=== PATIENT | male | born 1980 | race Caucasian/White ===

== ENCOUNTER 2021-10-21 09:24 | Outpatient (CLI) | payer BC, SELFPAY ==
--- NOTE | ~2021-10-21 | NM_ITS ---
EXAM: NM gastric emptying study DATE: 10/21/2021 14:05 INDICATION: Gastroparesis TECHNIQUE: A gastric emptying study was performed using the methodology of Mari SADLER, et al. J Nucl Med 2007; 48:568-572. The patient was given a meal consisting of 2 scrambled eggs labeled with 1 mCi Tc-99m sulfur colloid, 2 slices of toast, two packages of jam, and approximately 120 mL of water. Si multaneous anterior and posterior 1-min images of the abdomen were obtained with the patient supine a t multiple time points over a total period of 4 hours. The geometric mean of anterior and posterior v iews was determined, and the percentage retention was calculated for each time point. COMPARISON: None. FINDINGS: Gastric retention of the radiotracer-labeled meal was 33%, 14%, and 6% at the 1-hour, 2-hour, and 4-h our time points, respectively. With this technique, apparent rapid gastric emptying is suggested by < 30% gastric retention at 1 hour. Delayed gastric emptying is defined by gastric retention of >90% at 1 hour, >60% retention at 2 hours, or >10% retention at 4 hours. IMPRESSION: 1. Normal gastric emptying. Reviewed, dictated and finalized at location A. IMPRESSION: 1. Normal gastric emptying.
== END 2021-10-21 09:25 | disposition home or self-care (01) ==
LOC: ANHIMG 09:27
PROVIDERS: Visit Provider Family Medicine
DX: K31.84 Gastroparesis (principal); I10 Essential (primary) hypertension
CPT/HCPCS: 78264; A9541

== ENCOUNTER 2021-10-28 08:22 | Outpatient (CLI) | payer BC, SELFPAY ==
--- NOTE | ~2021-10-28 | US_ITS ---
EXAMINATION: US retroperitoneal duplex ltd DATE: 10/28/2021 09:07 INDICATION: hypertension TECHNIQUE: Multiple grayscale, color Doppler, and pulsed Doppler images of the kidneys and renal paul marguerite were obtained. COMPARISON: None. FINDINGS: The aorta peak systolic velocity is 75 cm/s. The right renal artery peak systolic velocity is 109 cm/ s in the proximal segment, 113 cm/s in the mid segment, and 99 cm/s in the distal segment. The left r enal artery peak systolic velocity is 75 cm/s in the proximal segment, 78 cm/s in the mid segment, an d 64 cm/s in the distal segment. IMPRESSION: 1. No Doppler evidence of renal artery stenosis. Reviewed, dictated and finalized at location B.
== END 2021-10-28 08:23 | disposition home or self-care (01) ==
PROVIDERS: PCP Family Medicine; Visit Provider Family Medicine
DX: I10 Essential (primary) hypertension (principal)
CPT/HCPCS: 93976

== ENCOUNTER 2022-04-15 11:00 | Outpatient (RCR) | payer BC, SELFPAY ==
[2022-01-28 13:35] VITALS: BP_SYST 110
--- NOTE | 2022-01-28 14:49 | OTOPEVAL1 ---
Assessment and note entered by SIMONE Lo/Divina Evaluation Information Assessment Status Evaluation Diagnosis CVA July 2018 Subjective Information Patient reports L UE has very little strength, difficulty with letting go of items, use of L UE during daily and functional tasks. Patient reports L UE elbow to hand is painful. Patient reports wants to increase strength and function of L UE. Reported Pain Level Pain Score 4: Self Report Assessment OT Clinical Summary Addy is a 41 year old male presenting to Outpatient OT with a history of CVA from 2019 with residual L sided weakness. Patient demonstrates deficits with L UE strength and active ROM resulting in difficulties with functional and daily tasks. Patient would benefit from skilled OT for use of modalities, neuro re-education, UE strengthening, instruction on home programs in order to increase participation and functional use of L UE. Plan of Care Interventions Therapeutic Exercise,Manual Therapy,Neuro Re- education,Therapeutic Activities,Electrical Stimulation,Self-Care/Home Management,Other OT Services Indicated Yes These treatments will address the objective and functional deficits as defined above. The patient will be advanced safely and appropriately in order for the patient to progress towards his/her prior level of function. Additional exercises will be introduced and as well as a comprehensive home exercise program upon discharge, if needed, ?to ensure carryover of functional gains achieved in the clinic. This treatment plan has been reviewed and agreement upon by the patient.
--- NOTE | 2022-02-04 14:51 | PTOPEVAL1 ---
Assessment and note entered by Gardenia Walker, PT, DPT Evaluation Information Assessment Status Evaluation Diagnosis CVA Onset 3 years ago Subjective Information Pt states he had a stroke 3 years ago. He has completed 3 months of inpatient therapy and 3 months of outpatient therapy and then the pandemic started. Pt states he has difficultly turning his body to the left, like getting in/out of the car. He states he has L leg weakness that makes it hard for him to walk. He states he would like to normalize his gait and to improve his leg strength . He reports mikel hip pain. He states he can stand for 20 mins before he has to go sit down. He has a history of seizues. Reported Pain Level Pain Score 2: Self Report Pain Score 0: Self Report Assessment PT Clinical Summary Addy presents to therapy today for his initial evaluation with a diagnosis of a CVA in July of 2018. Today he demonstrates significant weakness of his LLE with trace muscle activation of his ankle and knee. He demonstrates severe gait deviations d/t this as well as decreased balance, and decreased functional mobility. He demonstrates a decreased gait speed and unequal weight distribution during functional mobility. Skilled physical therapy services are indicated to treat the deficits noted, to improve function, to improve safety, and to limit impairment. Plan of Care Interventions Electrical Stimulation,Gait Training,Manual Therapy,Neuro Re-education,Patient/Caregiver Educati,Therapeutic Activities,Therapeutic Exercise PT Services Indicated Yes Treatment Frequency and 2x/wk for 4 wks Duration These treatments will address the objective and functional deficits as defined above. The patient will be advanced safely and appropriately in order for the patient to progress towards his/her prior level of function. Additional exercises will be introduced and as well as a comprehensive home exercise program upon discharge, if needed, ?to ensure carryover of functional gains achieved in the clinic. This treatment plan has been reviewed and agreement upon by the patient.
[2022-02-25 12:30] VITALS: BP_SYST 115
--- NOTE | 2022-02-25 14:31 | OTOPREEVAL ---
Assessment and note entered by SIMONE Lo/Divina Evaluation Information Assessment Status Re-evaluation Diagnosis CVA July 2018 Subjective Information Patient presents for re-evaluation after 4 weeks of OT. Patient reports hand and wrist are looser in addition to shoulder feeling less pain which has helped with sleeping better. Patient reports the L hand feels easier to campus coordinator objects but is still difficult to release objects. Reported Pain Level Pain Score 1: Self Report Pain Score 1: Self Report Assessment OT Clinical Summary Addy presents to Outpatient OT with diagnosis of CVA with L side weakness. Patient has attended therapy for 4 weeks. Addy has exhibited progress with active ROM and strength of shoulder. Patient has increased campus coordinator and lateral pinch strength. Patient reports decreased pain in L shoulder. Patient would benefit from continued skilled OT for HEP instruction/progression, UE ROM/ strengthening exercises, modalities, manual therapy in order to optimize functional use of L UE. Plan of Care Interventions Therapeutic Exercise,Manual Therapy,Neuro Re- education,Therapeutic Activities,Hot Pack/Cold Pack,Electrical Stimulation,Self-Care/Home Management,Other OT Services Indicated Yes These treatments will address the objective and functional deficits as defined above. The patient will be advanced safely and appropriately in order for the patient to progress towards his/her prior level of function. Additional exercises will be introduced and as well as a comprehensive home exercise program upon discharge, if needed, ?to ensure carryover of functional gains achieved in the clinic. This treatment plan has been reviewed and agreement upon by the patient.
--- NOTE | 2022-03-18 16:48 | PTOPPROG ---
Assessment and note entered by Gardenia Walker, PT, DPT Evaluation Information Assessment Status Progress Diagnosis CVA Onset 3 years ago Subjective Information Pt states he has noticed his balance has improved since starting therapy. He states outside of that things seem about the same. Assessment PT Clinical Summary Addy presents to therapy today for his progress report following 5 visits of skilled therapy. Today he demonstrates improved knee strength, he still has decreased control over his hip motions, and decreased responsiveness in his L ankle. He has improved his gait speed during the 2 min walk test. He continues to ambulate with significant gait deviations as he demonstrates decreased hip and knee flexion on the L with increased hip circumduction. Continuation of skilled physical therapy services are indicated to address gait deviation, to aid in decreasing tone, to improve strength and ROM, to manage pain, and to progress towards a return in baseline function. Plan of Care Interventions Electrical Stimulation,Gait Training,Manual Therapy,Neuro Re-education,Patient/Caregiver Educati,Therapeutic Activities,Therapeutic Exercise PT Services Indicated Yes Treatment Frequency and 2x/wk for 6 wks Duration These treatments will address the objective and functional deficits as defined above. The patient will be advanced safely and appropriately in order for the patient to progress towards his/her prior level of function. Additional exercises will be introduced and as well as a comprehensive home exercise program upon discharge, if needed, ?to ensure carryover of functional gains achieved in the clinic. This treatment plan has been reviewed and agreement upon by the patient.
[2022-04-01 10:00] VITALS: BP_SYST 117
--- NOTE | 2022-04-01 10:55 | OTOPPROG ---
Assessment and note entered by SIMONE Lo/Divina Evaluation Information Assessment Status Progress Diagnosis CVA July 2018 Subjective Information Patient presents for re-evaluation for OT. Patient reports continues to have less pain in shoulder and L UE is looser. Patient reports it is easier to grasp objects but still wants to work on releasing objects better. Assessment OT Clinical Summary Addy presents to Outpatient OT with diagnosis of CVA with L side weakness. Patient has attended therapy for 8 weeks. Addy has exhibited continued progress with active ROM and strength of shoulder. Patient has increased facility assistant and carmona pinch strength. Patient reports wants to continue working on finger extension. Patient would benefit from continued skilled OT for HEP instruction/ progression, UE ROM/strengthening exercises, modalities, manual therapy in order to optimize functional use of L UE. Plan of Care Interventions Therapeutic Exercise,Manual Therapy,Neuro Re- education,Therapeutic Activities,Hot Pack/Cold Pack,Electrical Stimulation,Self-Care/Home Management,Other OT Services Indicated Yes These treatments will address the objective and functional deficits as defined above. The patient will be advanced safely and appropriately in order for the patient to progress towards his/her prior level of function. Additional exercises will be introduced and as well as a comprehensive home exercise program upon discharge, if needed, ?to ensure carryover of functional gains achieved in the clinic. This treatment plan has been reviewed and agreement upon by the patient.
--- NOTE | 2022-04-03 13:10 | PCPTNOTE ---
Patient called & cancelled scheduled appointment this date due to having a bad headache.
--- NOTE | 2022-04-22 09:14 | PCPTNOTE ---
This treatment is being continued on visit number [id number]. Please see documentation on both accounts to view progress. Completed interventions, outcomes, and problems have been marked as Inactive to facilitate the copying of the Care plan routine for recurring accounts.
--- NOTE | 2022-04-22 09:58 | PCOTNOTE ---
This treatment is being continued on visit number [id number]. Please see documentation on both accounts to view progress. Completed interventions, outcomes, and problems have been marked as Inactive to facilitate the copying of the Care plan routine for recurring accounts.
== END 2022-04-16 14:31 | disposition home or self-care (01) ==
LOC: ANHGOSHPT 11:00
PROVIDERS: PCP Family Medicine
DX: G57.01 Lesion of sciatic nerve, right lower limb (principal); I63.9 Cerebral infarction, unspecified; G81.14 Spastic hemiplegia affecting left nondominant side
CPT/HCPCS: 97014; 97110; 97112; 97116; 97140; 97162; 97165; 97168; 97530; G0283

== ENCOUNTER 2022-07-08 11:00 | Outpatient (RCR) | payer BC, SELFPAY ==
--- NOTE | 2022-04-22 09:14 | PCPTNOTE ---
The treatment documented on this account is a continuation of the treatment documented on visit number [id number]. Please see documentation on both accounts to view progress. The Plan of Care has been transitioned and updated within the new V#. I have addressed and agree with the discipline specific Problems, Interventions, and Goals for the current certification period. Completed interventions, outcomes, and problems have been marked as Inactive to facilitate the copying of the Care plan routine for recurring accounts.
--- NOTE | 2022-04-22 09:59 | PCOTNOTE ---
The treatment documented on this account is a continuation of the treatment documented on visit number [id number]. Please see documentation on both accounts to view progress. The Plan of Care has been transitioned and updated within the new V#. I have addressed and agree with the discipline specific Problems, Interventions, and Goals for the current certification period. Completed interventions, outcomes, and problems have been marked as Inactive to facilitate the copying of the Care plan routine for recurring accounts.
[2022-04-27 10:59] VITALS: BP_SYST 120
--- NOTE | 2022-04-27 12:05 | OTOPPROG ---
Assessment and note entered by Anahi Schumacher OTR/Divina Evaluation Information Assessment Status Re-evaluation Subjective Information Patient reports L UE feels looser at the elbow since previous re-evaluation. Reports it is easier to potato picker items but still difficult to release items. Assessment OT Clinical Summary Addy presents to Outpatient OT with diagnosis of CVA with L side weakness. Patient has attended therapy for 12 weeks. Addy has demonstrated progress with active ROM and strength of shoulder. Patient demonstrated increased gas welder, lateral/ carmona pinch strength, ability to grasp objects. Patient would benefit from continued skilled OT for HEP instruction/progression, UE ROM/ strengthening exercises, modalities, manual therapy in order to optimize functional use of L UE. Plan of Care Interventions Therapeutic Exercise,Manual Therapy,Neuro Re- education,Therapeutic Activities,Hot Pack/Cold Pack,Electrical Stimulation,Self-Care/Home Management OT Services Indicated Yes Treatment Frequency and 1x/week, 4 weeks Duration These treatments will address the objective and functional deficits as defined above. The patient will be advanced safely and appropriately in order for the patient to progress towards his/her prior level of function. Additional exercises will be introduced and as well as a comprehensive home exercise program upon discharge, if needed, ?to ensure carryover of functional gains achieved in the clinic. This treatment plan has been reviewed and agreement upon by the patient.
--- NOTE | 2022-05-01 16:04 | PTOPPROG ---
Assessment and note entered by Gardenia Walker, PT, DPT Evaluation Information Assessment Status Progress Diagnosis CVA Onset 2019 Subjective Information Pt states his hip feels a little tight today after walking and standing at a conference this weekend and then was in the car for 24 hours. He states he feels like his walking is improving a little he states it just feels a lot more concisus. Assessment PT Clinical Summary Addy presents to therapy today for his progress report following 13 visits of skilled therapy to treat the deficts of a CVA in 2019. Today Addy continues to have trace dorsiflexion strength on his L side, decreased hip and knee strength and control on the L, and decreased hip motion on the L. He reports increased hip pain since 2019 which has decreased since completing some therapy. He continues to have increased tone in his L leg making it difficult to achieve a fluid gait pattern but her reports notable improvement in his pain with ambulation. Continuation of skilled physical therapy services are indicated to further progress towards strength, ROM, and mobility goals, to manage pain, and to improve functional mobility. Plan of Care Interventions Gait Training,Manual Therapy,Neuro Re-education, Patient/Caregiver Educati,Therapeutic Activities, Therapeutic Exercise PT Services Indicated Yes Treatment Frequency and 2x/wk for 4 wks Duration These treatments will address the objective and functional deficits as defined above. The patient will be advanced safely and appropriately in order for the patient to progress towards his/her prior level of function. Additional exercises will be introduced and as well as a comprehensive home exercise program upon discharge, if needed, ?to ensure carryover of functional gains achieved in the clinic. This treatment plan has been reviewed and agreement upon by the patient.
--- NOTE | 2022-05-13 09:29 | PCPTNOTE ---
Patient reports he had a meeting he had to attend all day and could not make appointment.
--- NOTE | 2022-05-21 13:00 | PCPTNOTE ---
Patient called & cancelled scheduled appointment this date due to not being able to make it in.
--- NOTE | 2022-05-27 07:20 | PCOTNOTE ---
Patient called & cancelled scheduled appointment on 05/13/2022 and 05/20/2022 due to work meetings and a class patient had to attend, patient is scheduled for a re-evaluation on this date 05/27/2022.
[2022-05-27 10:04] VITALS: BP_SYST 124
--- NOTE | 2022-05-27 11:17 | OTOPPROG ---
Assessment and note entered by SIMONE Lo/Divina Evaluation Information Assessment Status Progress Subjective Information Patient reports L UE elbow is moving better and is able to perform more shoulder horizontal abduction. Patient reports has still completed HEP consistently since last re-evaluation. Missed several treatments due to work meetings and a mandatory class. Patient reports functionally at home is able to use L hand for picking up objects and holding onto items easier. Assessment OT Clinical Summary Addy presents to Outpatient OT with diagnosis of CVA with L side weakness. Patient has attended therapy for 16 weeks although since previous re- evaluation on 04/27/2022 has only been able to attend treatment x1 due to work and a class conflict. Patient reports has completed HEP at home. Addy has demonstrated progress with active ROM and strength of shoulder. 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 Patient would benefit from continued skilled OT for HEP progression, UE ROM/strengthening exercises, modalities, manual therapy in order to optimize functional use of L UE. Plan of Care Interventions Therapeutic Exercise,Manual Therapy,Neuro Re- education,Therapeutic Activities,Hot Pack/Cold Pack,Electrical Stimulation,Self-Care/Home Management OT Services Indicated Yes Treatment Frequency and 1x/week, 4 weeks Duration These treatments will address the objective and functional deficits as defined above. The patient will be advanced safely and appropriately in order for the patient to progress towards his/her prior level of function. Additional exercises will be introduced and as well as a comprehensive home exercise program upon discharge, if needed, ?to ensure carryover of functional gains achieved in the clinic. This treatment plan has been reviewed and agreement upon by the patient.
--- NOTE | 2022-06-11 15:35 | PTOPPROG ---
Assessment and note entered by Gardenia Walker, PT, DPT Evaluation Information Assessment Status Progress Diagnosis CVA Onset 2019 Subjective Information Pt states his hip has been bothering him a lot recently. Pt states he feels like his L ankle is still really weak making it hard for him to work as he has to walk on rocks and mud. He states he feels like his sit to stands have improved. Assessment PT Clinical Summary Addy presents to therapy today for his progress report following 21 visits of skilled therapy to treat his residual symptoms from a CVA in 2019. Today he continues to demonstrate trace ankle strength without any improvement, he does demonstrate minor improvements in knee and hip strength as well as control with active motions. He demonstrates improved body awareness of deficits with functional mobility. Continuation of skilled physical therapy services are indicated to address deficits noted above and to improve functional mobility. Plan of Care Interventions Gait Training,Manual Therapy,Neuro Re-education, Patient/Caregiver Educati,Therapeutic Activities, Therapeutic Exercise PT Services Indicated Yes Treatment Frequency and 1x/wk for 4 wks Duration These treatments will address the objective and functional deficits as defined above. The patient will be advanced safely and appropriately in order for the patient to progress towards his/her prior level of function. Additional exercises will be introduced and as well as a comprehensive home exercise program upon discharge, if needed, ?to ensure carryover of functional gains achieved in the clinic. This treatment plan has been reviewed and agreement upon by the patient.
[2022-07-08 09:58] VITALS: BP_SYST 105
--- NOTE | 2022-07-08 12:49 | OTOPDC ---
Assessment and note entered by Anahi Schumacher OTR/Divina Evaluation Information Assessment Status Discharge Diagnosis CVA Subjective Information Patient Presents for Re-evaluation after 4 treatments with OT. Since previous re-eval patient reports L hand feels looser, is able to move L shoulder better. Patient reports has still completed HEP consistently including WB through L UE, stretching shoulder, stretching hand and using theraputty for gross gripping. Functionally patient reports is able to apply deodorant under L arm easier due to increased strength of L UE. Reported Pain Level Pain Score 3: Self Report Pain Score 2: Self Report Assessment OT Clinical Summary Addy presents to Outpatient OT with diagnosis of CVA with L side weakness. Patient has made improvements with overall function of L UE including active/passive ROM and gross strength. Patient did not make improvements from previous re -evaluation on 05/27/2022 with L UE strength, ROM or coordination. Patient is to be discharged from skilled OT at this time with independence with HEP materials. Patient is agreeable to plan at this time. Plan of Care OT Services Indicated No
--- NOTE | 2022-07-08 17:14 | PTOPDC ---
Assessment and note entered by Gardenia Walker, PT, DPT Evaluation Information Assessment Status Discharge Diagnosis CVA Onset 2018 Subjective Information Pt states he went to a football game on Wednesday and after the game he states his hip really hurt with all the walking, standing, and stairs, he states his pain was a 10/10. Reported Pain Level Pain Score 3: Self Report Pain Score 2: Self Report Assessment PT Clinical Summary Addy presents to therapy today for his progress report following 24 visits of skilled therapy to treat the residual deficits from a CVA in 2019. Today he demonstrates continued decreased in LLE strength compared to his RLE. Since starting therapy his gait speed and gait deviations have both fluctuated. When he decreases his speed he can minimize the substitutions, but as speed increases so do the substitutions. It was recommended that he continue with his LE HEP on his own to improve LE strength. He will be discharged at this time d/t poor therapy progress. Plan of Care Interventions Gait Training,Manual Therapy,Neuro Re-education, Patient/Caregiver Educati,Therapeutic Activities, Therapeutic Exercise PT Services Indicated No Treatment Frequency and to be discharged Duration
== END 2022-07-09 10:43 | disposition home or self-care (01) ==
LOC: ANHGOSHPT 11:00
PROVIDERS: PCP Family Medicine
DX: G57.01 Lesion of sciatic nerve, right lower limb (principal); I63.9 Cerebral infarction, unspecified; G81.14 Spastic hemiplegia affecting left nondominant side
CPT/HCPCS: 97014; 97110; 97112; 97116; 97140; 97530; 99199; G0283

== ENCOUNTER 2022-07-24 20:00 | Emergency (ER) | payer BC, SELFPAY ==
--- NOTE | 2022-07-24 20:01 | ED.URI ---
HPI - URI/Sore Throat General Chief Complaint: Upper Respiratory Infection Stated Complaint: COUGH Time Seen by Provider: 07/24/22 20:01 Source: patient Mode of arrival: ambulatory Limitations: no limitations History of Present Illness HPI Narrative: History of stroke, diabetes, high blood pressure presents with complaint of cough for 2-3 days. Reports he is having coughing fits, [id number] medications are not helping. Is not getting any sleep at night. Denies chest pain and shortness of breath. Afebrile. No concern for COVID today. Patient here with his father. Patient has residual weakness from stroke 3 years ago. Ambulatory with steady gait. Patient is friendly, speaking in full sentences. All systems reviewed and negative except as noted above. Related Data Home Medications Medication Instructions Recorded Confirmed amlodipine 5 mg tablet 5 mg PO DAILY 07/24/22 07/24/22 atorvastatin 40 mg tablet 40 mg PO DAILY 07/24/22 07/24/22 baclofen 10 mg tablet 10 mg PO DAILY 07/24/22 07/24/22 duloxetine 60 mg capsule,delayed 60 mg PO DAILY 07/24/22 07/24/22 release gabapentin 300 mg capsule 300 mg PO DAILY 07/24/22 07/24/22 glipizide 10 mg tablet, extended 10 mg PO DAILY 07/24/22 07/24/22 release 24 hr lisinopril 40 mg tablet 40 mg PO DAILY 07/24/22 07/24/22 metformin 500 mg tablet,extended 500 mg PO DAILY 07/24/22 07/24/22 release 24 hr pioglitazone 45 mg tablet 45 mg PO DAILY 07/24/22 07/24/22 Allergies Allergy/AdvReac Type Severity Reaction Status Date / Time No Known Allergies Allergy Verified 07/24/22 20:04 Review of Systems Review of Systems: CONSTITUTIONAL: Denies fever, chills, or sweats. EYES: Denies visual changes, redness, or discharge. ENT: Reports rhinorrhea, congestion, postnasal drainage. Denies sore throat, or otalgia. CARDIOVASCULAR: Denies chest pain, palpitations, or edema. RESPIRATORY: Reports cough. Denies dyspnea. GASTROINTESTINAL: Denies abdominal pain, nausea, vomiting, or diarrhea. GENITOURINARY: Denies dysuria or hematuria. SKIN: Denies rash or itching. MUSCULOSKELETAL: Denies back pain, joint pain, or myalgia. NEUROLOGIC: Denies headache, numbness, or weakness. PSYCHIATRIC: Denies anxiety or depression. All other systems reviewed are negative, except as documented in HPI. PMFSH Comments At time of signature, agree with nursing past medical, surgical, social and family history. There is no relevant family history pertinent to the presenting complaint. Exam Narrative: GENERAL: This is a well-nourished, well-developed patient, in no apparent distress. HEAD: normocephalic, atraumatic. EYES: PERRL. Sclera clear/white. Vision is grossly intact. EARS: External ears normal, auditory canals clear and without drainage, TMs normal without perforation. Hearing grossly intact. NOSE: External nose normal with clear nasal drainage. Nares without erythema. THROAT: Mucous membranes moist, no erythema to posterior pharynx. Clear postnasal drainage. NECK: Neck supple, non-tender without lymphadenopathy, masses or thyromegaly. CARDIOVASCULAR: Regular rate and rhythm without murmurs, gallops, or rubs. RESPIRATORY: Clear to auscultation. Breath sounds equal bilaterally. No wheezes, rales, or rhonchi. SKIN: warm, Dry, intact with no suspicious lesions or rash, good texture and turgor. NEURO: awake, alert, and oriented to person, place and time. There were no obvious focal neurologic abnormalities. EXTREMITIES: No joint tenderness, effusion, or edema noted. Course Course Level of Care: Express Care Visit Vital Signs Vital signs: Vital Signs Temperature 36.6 C 07/24/22 20:08 Pulse Rate 102 H 07/24/22 20:08 Respiratory Rate 16 07/24/22 20:08 Blood Pressure 142/95 H 07/24/22 20:08 Pulse Oximetry 99 07/24/22 20:08 Temperature 36.6 C 07/24/22 20:08 Pulse Rate 102 H 07/24/22 20:08 Respiratory Rate 16 07/24/22 20:08 Blood Pressure 142/95 H 07/24/22 20:08 P
[2022-07-24 20:08] VITALS: BP 142/95; PULSE 102; RESP 16; TEMP 36.6; O2SAT 99
== END 2022-07-24 20:19 | disposition home or self-care (01) ==
PROVIDERS: Emergency Provider Nurse Practitioner Family; PCP Family Medicine
DX: J06.9 Acute upper respiratory infection, unspecified (principal); Z79.84 Long term (current) use of oral hypoglycemic drugs
CPT/HCPCS: 99213; G0463

== ENCOUNTER 2024-05-01 07:48 | Outpatient (RCR) | payer BC, SELFPAY ==
--- NOTE | 2024-05-01 11:12 | PTOPEVAL1 ---
Assessment and note entered by Rodriguez Cruz Evaluation Information Assessment Status Evaluation ICD-10 Condition Codes (PT) Difficulty Walking R26.2,Abnormalities of gait and mobility R26.9,Weakness R53.1 Other ICD-10 Condition Codes ( I69.354, Z86.79, Z98.890 PT) Onset 08/04/2018 Subjective Information Pt reports he had a CVA in July 2018 and went to impatient rehab at [facility]. While in rehab he reports having an aneurysm and then went to a different rehab facility in [place]. After returning home in October 2018 he was attending outpatient PT until [place]. 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 He occasionally uses a cane when it's icy outside or if he's out on the job site, states he doesn't typically use the cane if he's on level ground. States he lives by himself in a two story home with 4 steps to enter, reports he doesn't access the second floor. States his goal is to get rid of some pain in his left hip and walk straighter. He reports he often feels like his hip is going to pop out. Reports 3 falls in the last year. Reported Pain Level Pain Score 6: Self Report Assessment PT Clinical Summary Mr. Ibanez is a 44 year old male who presents to physical therapy with complaints of left sided weakness and hip pain following a CVA in 2018. He presents with moderate left hip pain, generalized weakness of the left lower extremity with flexor synergy noted with active movements, impaired left ankle ROM, and functional decline. He is at an increased risk for falls per Tinetti and demonstrates impaired functional walking capacity per 6MWT. Skilled PT services are indicated to improve lower extremity strength and joint mobility, reduce pain, and improve overall functional mobility and endurance for the patient to be able to perform functional tasks and work activities with reduced pain. Plan of Care Interventions Check Out for Orthotic/Prosthetic,Electrical Stimulation,Gait Training,Hot Pack/Cold Pack, Manual Therapy,Neuro Re-education,Patient/ Caregiver Education,Therapeutic Activities, Therapeutic Exercise,Self-Care/Home Management PT Services Indicated Yes Treatment Frequency and 2x/week for 12 visits Duration These treatments will address the objective and functional deficits as defined above. The patient will be advanced safely and appropriately in order for the patient to progress towards his/her prior level of function. Additional exercises will be introduced and as well as a comprehensive home exercise program upon discharge, if needed, ?to ensure carryover of functional gains achieved in the clinic. This treatment plan has been reviewed and agreement upon by the patient.
--- NOTE | 2024-05-01 11:14 | PCPTNOTE ---
I reviewed the License Pending Therapist's documentation and agree with the findings.
--- NOTE | 2024-05-22 16:30 | PCPTNOTE ---
I reviewed the License Pending Therapist's documentation and agree with the findings.
--- NOTE | 2024-05-31 09:01 | OPREHPOC ---
Outpatient Therapy Plan of Care This is a Multidisciplinary Plan of Care that may contain components documented by all disciplines (PT, OT, and ST.) PT Problem 1 PT Problem #1 Knowledge Deficit PT Goal 1 Goal / Goal Update Independent with HEP Target Visit 2 Progress Met PT Problem 2 PT Problem #2 Impaired Range of Motion PT Goal 1 Goal / Goal Update 1. Improve ankle dorsiflexion PROM to 10 degrees for improved ankle flexibility for functional tasks Target Visit 12 PT Problem 3 PT Problem #3 Pain PT Goal 1 Goal / Goal Update 1. Reduce pain at rest to 3/10. met 2. Pt to report withstanding work activities with no more than 5/10 pain in the L hip. met Target Visit 12 Progress Met PT Problem 4 PT Problem #4 Impaired Functional Mobility PT Goal 1 Goal / Goal Update 1. Pt improve 5xSTS score to 12 seconds for improved ability to get out of a chair. not met 2. Improve 6MWT to 700ft for improved functional endurance and standing tolerance for work activities. Target Visit 12 PT Problem 5 PT Problem #5 Impaired Strength PT Goal 1 Goal / Goal Update 1. Improve gross hip strength to 3+/5 2. Improve knee extension strength to 3+/5 Target Visit 12
--- NOTE | 2024-05-31 09:01 | PTOPPROGNS ---
Assessment and note entered by JT File, PT Evaluation Information Assessment Status Evaluation ICD-10 Condition Codes (PT) Difficulty Walking R26.2,Abnormalities of gait and mobility R26.9,Weakness R53.1 Other ICD-10 Condition Codes ( I69.354, Z86.79, Z98.890 PT) Onset 08/04/2018 Subjective Information patient reports he feels pretty good. he reports he is a bit tired today. he reports since starting therapy, he feels his hips are looser and his balance is better. he also feels he has some more flex/mobility in the L ankle. he reports he has had no falls. Assessment PT Clinical Summary mr. valadez presents to skilled PT services for his 10th skilled therapy visit. he displays improved gait efficiency on 6 minute walk test, but continued circumduction of the L LE during gait cycle. he notes much decreased and well managed pain reports now. patient would benefit from continued skilled PT to address his remaining objective/functional deficits and improve his functional activity performance/quality of life. Plan of Care Interventions Check Out for Orthotic/Prosthetic,Electrical Stimulation,Gait Training,Hot Pack/Cold Pack, Manual Therapy,Neuro Re-education,Patient/ Caregiver Education,Therapeutic Activities, Therapeutic Exercise,Self-Care/Home Management PT Services Indicated Yes Treatment Frequency and continue skilled PT per initial POC Duration These treatments will address the objective and functional deficits as defined above. The patient will be advanced safely and appropriately in order for the patient to progress towards his/her prior level of function. Additional exercises will be introduced and as well as a comprehensive home exercise program upon discharge, if needed, ?to ensure carryover of functional gains achieved in the clinic. This treatment plan has been reviewed and agreement upon by the patient.
--- NOTE | 2024-06-29 08:11 | OPREHPOC ---
Outpatient Therapy Plan of Care This is a Multidisciplinary Plan of Care that may contain components documented by all disciplines (PT, OT, and ST.) PT Problem 1 PT Problem #1 Knowledge Deficit PT Goal 1 Goal / Goal Update Independent with HEP Target Visit 2 Progress Met PT Problem 2 PT Problem #2 Impaired Range of Motion PT Goal 1 Goal / Goal Update 1. Improve ankle dorsiflexion PROM to 10 degrees for improved ankle flexibility for functional tasks Target Visit 12 Progress Not Met PT Problem 3 PT Problem #3 Pain PT Goal 1 Goal / Goal Update 1. Reduce pain at rest to 3/10. met 2. Pt to report withstanding work activities with no more than 5/10 pain in the L hip. met Target Visit 12 Progress Met PT Problem 4 PT Problem #4 Impaired Functional Mobility PT Goal 1 Goal / Goal Update 1. Pt improve 5xSTS score to 12 seconds for improved ability to get out of a chair. not met 2. Improve 6MWT to 700ft for improved functional endurance and standing tolerance for work activities. met Target Visit 16 Progress Partially Met PT Problem 5 PT Problem #5 Impaired Strength PT Goal 1 Goal / Goal Update 1. Improve gross hip strength to 3+/5. not met 2. Improve knee extension strength to 3+/5. met Target Visit 12 Progress Partially Met
--- NOTE | 2024-06-29 08:11 | PTOPDC ---
Assessment and note entered by JT File, PT Evaluation Information Assessment Status Discharge ICD-10 Condition Codes (PT) Difficulty Walking R26.2,Abnormalities of gait and mobility R26.9,Weakness R53.1 Other ICD-10 Condition Codes ( I69.354, Z86.79, Z98.890 PT) Onset 08/04/2018 Subjective Information patient reports he has had no falls since starting therapy. he reports he feels more mobile and steady on his feet. he reports he feels his balance is better. Assessment PT Clinical Summary mr. valadez presents to skilled PT services for his 12th skilled PT visit. he displays improved LE strength, improved gait efficiency, improved balance, and no falls over the last 4 weeks in skilled PT. he has met over 62% of his goals for skilled PT, with near achievement of the remaining unmet goals. at this time, he will DC skilled PT, and continue with HEP independent at home. he was educated to follow up with PT or PCP if he experiences any regression of performance. Plan of Care PT Services Indicated Yes
== END 2024-06-16 20:00 | disposition home or self-care (01) ==
LOC: CHSPT 07:48
PROVIDERS: Visit Provider Nurse Practitioner Adult Health
DX: I69.354 Hemiplegia and hemiparesis following cerebral infarction affecting left non-dominant side (principal); Z86.79 Personal history of other diseases of the circulatory system; Z98.890 Other specified postprocedural states
CPT/HCPCS: 97110; 97161; 97530

== ENCOUNTER 2024-07-13 09:55 | Outpatient (RCR) | payer BC, SELFPAY ==
--- NOTE | 2024-07-13 13:41 | OPREHPOC ---
Outpatient Therapy Plan of Care This is a Multidisciplinary Plan of Care that may contain components documented by all disciplines (PT, OT, and ST.) PT Problem 1 PT Problem #1 Knowledge Deficit PT Goal 1 Goal / Goal Update 1. independent and compliant with HEP Target Visit 6 PT Problem 2 PT Problem #2 Pain PT Goal 1 Goal / Goal Update 1. patient to report no radicular symptoms in the L UE for the last week 2. patient to report no shooting pains down to his L LE in the last week. Target Visit 12 PT Problem 3 PT Problem #3 Impaired Range of Motion PT Goal 1 Goal / Goal Update 1. improve cervical rotation L to 75 degrees active 2. improve cervical side bending bilat to 30 degrees or better 3. improve cervical extension to 45 degrees 4. patient to display active L shoulder flexion and abduction improvements of 15 degrees or better Target Visit 12 PT Problem 4 PT Problem #4 Impaired Strength PT Goal 1 Goal / Goal Update 1. improve L hand intern brand strength by 10 lbs 2. improve L elbow flex strength to 3+/5 or better 3. improve L elbow extension strength to 3+/5 or better Target Visit 12 PT Problem 5 PT Problem #5 Impaired Functional Mobility PT Goal 1 Goal / Goal Update 1. quick dash to display less than 30% functional deficits 2. NDI to display less than 30% functional deficits 3. patient to report no L UE issues looking over the L shoulder Target Visit 12
--- NOTE | 2024-07-13 13:41 | PTOPEVAL1 ---
Assessment and note entered by JT File, PT Evaluation Information Assessment Status Evaluation Diagnosis hx of carotid artery disection, L sided hemiparesis from CVA ICD-10 Condition Codes (PT) Radiculopathy, cervical M54.13,Pain in left shoulder M25.512 Other ICD-10 Condition Codes ( G89.29; M54.12; I69.354; Z86.79 PT) Onset 07/04/24 Subjective Information patient reports he saw the neurosurgeon about 2 weeks ago. he was told to come back to therapy for issues with the shoulder and arm. he reports his L scapular was stuck the other day. he reports he was able to break it loose with towel slides on a table. he reports he has been having issues with the L shoulder for 6 years since his stroke. he reports since the stroke he has been able to shrug the shoulder and squeeze his hand, but he has no active movement out of the elbow. he reports he has pain in the neck. he reports when he turns to the L to look over his shoulder he will get pain all the way down to his L foot. he had a stroke 6 years ago on the R side of his brain resulting in hemiparesis of the L side of his body. he reports he does get occasional numbness and tingling along the whole left side of his body (arm and leg) that he has had going on since his stroke. he reports he has increased pain in the L shoulder with movement and turning the head to the L side. Reported Pain Level Pain Score 3: Self Report Assessment PT Clinical Summary mr. perdomo is a 44 yo man who presents to skilled PT services for evaluation of L UE weakness and cervical radiculopathy. he has a history of L hemiparesis from a CVA about 6 years ago. he presents today with deficits in active/ passive L UE rom, poor posture, L shoulder instability, and decreased functional activity performance/quality of life. he would benefit from continued skilled PT to address these objective/ functional deficits to improve his functional activity performance and quality of life. he does not show any positive tests for cervical radiculopathy today, but reports some subjective symptoms that may indicate he has cervical radiculopathy affecting from of his L UE symptoms. we will address both the L shoulder and cervical spine in therapy. Plan of Care Interventions Electrical Stimulation,Hot Pack/Cold Pack,Manual Therapy,Neuro Re-education,Patient/Caregiver Education,Therapeutic Activities,Therapeutic Exercise PT Services Indicated Yes Treatment Frequency and 3x weekly for 12 visits Duration These treatments will address the objective and functional deficits as defined above. The patient will be advanced safely and appropriately in order for the patient to progress towards his/her prior level of function. Additional exercises will be introduced and as well as a comprehensive home exercise program upon discharge, if needed, ?to ensure carryover of functional gains achieved in the clinic. This treatment plan has been reviewed and agreement upon by the patient.
--- NOTE | 2024-08-16 09:18 | PTOPPROGNS ---
Assessment and note entered by JT File, PT Evaluation Information Assessment Status Progress Diagnosis hx of carotid artery disection, L sided hemiparesis from CVA ICD-10 Condition Codes (PT) Radiculopathy, cervical M54.13,Pain in left shoulder M25.512 Other ICD-10 Condition Codes ( G89.29; M54.12; I69.354; Z86.79 PT) Onset 07/04/24 Subjective Information patient reports he has been away from therapy for the past few weeks due to trying to get some stuff done at home between all the rain. he reports he will still get paresthesia's down the arm at times . he reports his doctor wants to order and MRI, but reports he needs more time in PT to get in approved. Assessment PT Clinical Summary mr. valadez returns to skilled PT after being away for a month. he continues to display deficits in rom, strength, and functional use of the L UE. he also continues to have paresthesia's in the L UE. he would benefit from return to skilled PT to address his objective/functional deficits to improve his quality of life and functional activity performance. Plan of Care Interventions Electrical Stimulation,Hot Pack/Cold Pack,Manual Therapy,Neuro Re-education,Patient/Caregiver Education,Therapeutic Activities,Therapeutic Exercise PT Services Indicated Yes Treatment Frequency and continue per initial POC Duration These treatments will address the objective and functional deficits as defined above. The patient will be advanced safely and appropriately in order for the patient to progress towards his/her prior level of function. Additional exercises will be introduced and as well as a comprehensive home exercise program upon discharge, if needed, ?to ensure carryover of functional gains achieved in the clinic. This treatment plan has been reviewed and agreement upon by the patient.
--- NOTE | 2024-09-01 11:35 | PCPTNOTE ---
Documentation by Carl Hinton, PT student reviewed and is correct. Suzette Evans, PAMLAT
--- NOTE | 2024-09-13 13:52 | OPREHPOC ---
Outpatient Therapy Plan of Care This is a Multidisciplinary Plan of Care that may contain components documented by all disciplines (PT, OT, and ST.) PT Problem 1 PT Problem #1 Knowledge Deficit PT Goal 1 Goal / Goal Update 1. independent and compliant with HEP Target Visit 6 Progress Partially Met PT Problem 2 PT Problem #2 Pain PT Goal 1 Goal / Goal Update 1. patient to report no radicular symptoms in the L UE for the last week 2. patient to report no shooting pains down to his L LE in the last week. Target Visit 12 Progress Not Met PT Problem 3 PT Problem #3 Impaired Range of Motion PT Goal 1 Goal / Goal Update 1. improve cervical rotation L to 75 degrees active 2. improve cervical side bending bilat to 30 degrees or better 3. improve cervical extension to 45 degrees 4. patient to display active L shoulder flexion and abduction improvements of 15 degrees or better Target Visit 12 Progress Not Met PT Problem 4 PT Problem #4 Impaired Strength PT Goal 1 Goal / Goal Update 1. improve L hand clinical neuropsychologist strength by 10 lbs 2. improve L elbow flex strength to 3+/5 or better 3. improve L elbow extension strength to 3+/5 or better Target Visit 12 Progress Not Met PT Problem 5 PT Problem #5 Impaired Functional Mobility PT Goal 1 Goal / Goal Update 1. quick dash to display less than 30% functional deficits 2. NDI to display less than 30% functional deficits 3. patient to report no L UE issues looking over the L shoulder Target Visit 12 Progress Not Met
--- NOTE | 2024-09-13 13:53 | PTOPPROGNS ---
Assessment and note entered by JT File, PT Evaluation Information Assessment Status Progress Diagnosis hx of carotid artery disection, L sided hemiparesis from CVA ICD-10 Condition Codes (PT) Radiculopathy, cervical M54.13,Pain in left shoulder M25.512 Other ICD-10 Condition Codes ( G89.29; M54.12; I69.354; Z86.79 PT) Onset 07/04/24 Subjective Information pt reports he is doing fine today, but over the weekend he had an increase in pain from riding around on a tractor. Pt reports that he went to his neurologist yesterday and scheduled an MRI for his neck. Pt reports that looking to the L still causes pain and numbness down his L arm. Assessment PT Clinical Summary completed his 10th skilled PT visit today. Pt still has deficits in L UE rom/strength, cervical ROM, balance, and gait. Pt is still having pain and paresthesia in the L UE and was referred to get an MRI of his cervical spine by his neurologist. The pt has not met any of his goals and still displays significant disability on outcome measures. Continued skilled PT is needed to work on functional strength/mobility, improve quality of life, and work towards pts goals. we will focus heavily on education on becoming independent and consistennt with HEP. Plan of Care Interventions Electrical Stimulation,Gait Training,Hot Pack/Cold Pack,Manual Therapy,Neuro Re-education,Patient/ Caregiver Education,Therapeutic Activities, Therapeutic Exercise PT Services Indicated Yes Treatment Frequency and continue per initial POC Duration These treatments will address the objective and functional deficits as defined above. The patient will be advanced safely and appropriately in order for the patient to progress towards his/her prior level of function. Additional exercises will be introduced and as well as a comprehensive home exercise program upon discharge, if needed, ?to ensure carryover of functional gains achieved in the clinic. This treatment plan has been reviewed and agreement upon by the patient.
--- NOTE | 2024-09-13 13:54 | PCPTNOTE ---
On 09/13/24, the student, [Carl Hinton], provided care and completed [facility] documentation on this patient. I have reviewed the student's documentation and agree with the findings.
== END 2024-09-19 20:00 | disposition home or self-care (01) ==
LOC: CHSPT 09:55
PROVIDERS: Visit Provider Nurse Practitioner Adult Health
DX: I69.354 Hemiplegia and hemiparesis following cerebral infarction affecting left non-dominant side (principal); M54.12 Radiculopathy, cervical region; M25.512 Pain in left shoulder; G89.29 Other chronic pain
CPT/HCPCS: 97110; 97112; 97140; 97161; 97530